=== PATIENT | male | born 1965 | race American Indian/Alaskan Native ===

== ENCOUNTER 2017-06-04 12:14 | Emergency (ER) | payer MEDICAID ==
[2017-06-04 12:31] VITALS: RESP 18; TEMP 99.1
--- NOTE | 2017-06-04 13:07 | ED PDOC ---
Arrival/HPI - General Chief Complaint: Medical Clearance Time Seen by Provider: 06/04/17 12:15 Historian: Patient - History of Present Illness Time/Duration: Other (Yesterday) Symptom Course: Worsening Quality: Aching, Pressure Severity Level: Severe Activities at Onset: Rest Associated Symptoms (Text): 06/04/17 13:05 Patient complains of severe perirectal pain and mass beginning yesterday. He had a normal bowel movement this morning. No abdominal pain nausea vomiting diarrhea constipation or GI bleed. No genitourinary symptoms. He has never experienced this previously. Past Medical History - Infectious Disease Hx of Infectious Diseases: None - Cardiac Hx Hypertension: Yes - Psychiatric Hx Psychophysiologic Disorder: No Hx Substance Use: No - Anesthesia Hx Anesthesia: No Hx Anesthesia Reactions: No Hx Malignant Hyperthermia: No Family/Social History - Physician Review Nursing Documentation Reviewed: Yes Family/Social History: Unknown Family HX Smoking Status: Never Smoked Hx Alcohol Use: No Hx Substance Use: No Allergies/Home Meds Allergies/Adverse Reactions: Allergies No Known Allergies Allergy (Verified 06/04/17 12:46) Home Medications: Home Meds Medication Instructions Recorded Confirmed Cyclobenzaprine [Flexeril] 1 tab PO HS PRN 06/04/17 06/04/17 Losartan/Hydrochlorothiazide 1 tab PO DAILY 06/04/17 06/04/17 [Losartan-Hctz 100-12.5 mg Tab] amLODIPine [Norvasc] 10 mg PO DAILY 06/04/17 06/04/17 Review of Systems - Physician Review All systems were reviewed & negative as marked: Yes - Review of Systems Constitutional: Normal Respiratory: Normal Cardiovascular: Normal Gastrointestinal: Normal Physical Exam Vital Signs Temp Pulse Resp BP Pulse Ox 06/04/17 13:27 86 18 148/78 99 06/04/17 12:36 99.1 F 97 H 18 154/84 H 98 06/04/17 12:25 99.1 F 97 H 18 154/84 H 97 Temperature: Afebrile Blood Pressure: Hypertensive Pulse: Regular Respiratory Rate: Normal Appearance: Positive for: Well-Appearing, Non-Toxic, Uncomfortable Pain Distress: Moderate Mental Status: Positive for: Alert and Oriented X 3 - Systems Exam Abdomen: Present: Normal Bowel Sounds. No: Tenderness, Distention, Peritoneal Signs, Rebound, Guarding Rectal: Present: Hemorrhoids, Other (Severe circumferential thrombosed hemorrhoids) Medical Decision Making ED Course and Treatment: 06/04/17 13:26 Discussed with the surgeon Dr. Deng and also the surgical training specialist who will evaluate the patient in the emergency department to make final disposition. 06/04/17 14:04 Seen by the surgical training specialist. Minimal reduction in the hemorrhoids achieved. Discussed with Dr. Deng who feels outpatient follow-up and elective surgery is appropriate. Patient is agreeable to this. He will follow up in the emergency department as needed. - Medication Orders Current Medication Orders: Discontinued Medications Hydromorphone HCl (Dilaudid) 2 mg IVP STAT STA Stop: 06/04/17 13:09 Last Admin: 06/04/17 13:20 Dose: 2 mg Lidocaine HCl (Xylocaine 2%) 0 ea TOP ONCE ONE Stop: 06/04/17 13:09 Last Admin: 06/04/17 13:19 Dose: Disposition/Present on Arrival - Present on Arrival Any Indicators Present on Arrival: No History of DVT/PE: No History of Uncontrolled Diabetes: No Urinary Catheter: No History of Decub. Ulcer: No History Surgical Site Infection Following: None - Disposition Have Diagnosis and Disposition been Completed?: Yes Diagnosis: Hemorrhoids with prolapsed tissue that cannot be manually replaced Disposition: HOME/ ROUTINE Disposition Time: 14:23 Patient Plan: Discharge Condition: GOOD Additional Instructions: follow up at Dr. Deng's office next week for hemorrhoidectomy -Try reducing manually when prolaps with lidocain jelly -Sitz bath for 10-15min 3 times a day -Apply anusol 3 times a day after sitz bath -apply ice pack -Take colace , stool softener Prescriptions: Hard Fat/Phenylephrine [place] [Anusol Suppository] 1 sup RC BID #14 sup Hydrocortisone 2.5% (Rectal) [Anusol-HC] 30 applic [place] BID #1 tube Docusate Sodium [Colace] 100 mg PO DAILY #20 capsule Referrals: Ammy Deng MD [Staff Provider] - Follow up with primary Sergio Pierce MD [Primary Care Provider] - Follow up with primary Forms: [employer] (Belizean)
[2017-06-04] MEDS ORDERED: Lidocaine 2% Jelly (30 ml) TOP ONE (13:08)
[2017-06-04] MEDS ORDERED: HYDROmorphone 2 mg/ml ISec IVP STA (13:08)
[2017-06-04 13:27] VITALS: BP 148/78; PULSE 86; O2SAT 99
--- NOTE | 2017-06-04 14:02 | CP.PCM.CON ---
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 Had regular BM yesterday. Non bloody. Non diarrhea. Denies constipation, bleeding, hematochezia, vomiting. Pt haven;t had hemorrhoids / rectal abscesss/ fissure in the past. Reduction attempted at bedside. Pt tolerated it well. Reports feeling better. 50% reduced. Review of Systems - Review of Systems Review of Systems: See HPI Past Patient History - Infectious Disease Hx of Infectious Diseases: None - Past Social History Smoking Status: Never Smoked - CARDIAC Hx Hypertension: Yes - PSYCHIATRIC Hx Psychophysiologic Disorder: No Hx Substance Use: No - SURGICAL HISTORY Hx Surgeries: No - ANESTHESIA Hx Anesthesia: No Hx Anesthesia Reactions: No Hx Malignant Hyperthermia: No Meds Allergies/Adverse Reactions: Allergies Allergy/AdvReac Type Severity Reaction Status Date / Time No Known Allergies Allergy Verified 06/04/17 12:46 Physical Exam - Constitutional Appears: No Acute Distress - Head Exam Head Exam: ATRAUMATIC, NORMAL INSPECTION, NORMOCEPHALIC - Eye Exam Eye Exam: EOMI, Normal appearance, PERRL Pupil Exam: NORMAL ACCOMODATION, PERRL - ENT Exam ENT Exam: Mucous Membranes Moist, Normal Exam - Neck Exam Neck exam: Positive for: Normal Inspection - Cardiovascular Exam Cardiovascular Exam: REGULAR RHYTHM - GI/Abdominal Exam GI & Abdominal Exam: Normal Bowel Sounds, Soft. absent: Distended, Firm, Guarding, Hernia, Tenderness - Rectal Exam Rectal Exam: Hemorrhoids. absent: Black Stool, Bloody Stool, Fecal Impaction Additional comments: circumferential hemorroids. L latera. R ant , R post. Non thrombosed. partially reducible. TTP. No fissure. no abscess - Exam Exam: NORMAL INSPECTION - Extremities Exam Extremities exam: Positive for: full ROM, normal inspection - Back Exam Back exam: NORMAL INSPECTION - Neurological Exam Neurological exam: Alert, CN II-XII Intact, Normal Gait, Oriented x3, Reflexes Normal - Psychiatric Exam Psychiatric exam: Normal Affect, Normal Mood - Skin Skin Exam: Dry, Intact, Normal Color, Warm Results - Vital Signs Recent Vital Signs: Last Vital Signs Temp 99.1 F 06/04/17 12:36 Pulse 86 06/04/17 13:27 Resp 18 06/04/17 13:27 BP 148/78 06/04/17 13:27 Pulse Ox 99 06/04/17 13:27 Assessment & Plan - Assessment and Plan (Free Text) Assessment: Severe external hemorrhoids. Possible prolapsed internal hemorrhoids. -DC home with : colace, anusol, lidocain jelly. -Try reducing manually when prolaps with lidocain jelly -Sitz bath -apply ice pack -follow up with Dr. Deng at her office next week to schedule hemorrhoidectomy DW Dr. Deng
== END 2017-06-04 14:26 | disposition home or self-care (01) ==
LOC: ED 12:14
DX: K64.4 Residual hemorrhoidal skin tags (principal); I10 Essential (primary) hypertension
CPT/HCPCS: 96374; 99283; J1170

== ENCOUNTER 2017-06-05 12:35 | Inpatient (IN) | payer MEDICAID ==
[2017-06-05 13:09] VITALS: BMI 34.2
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
[2017-06-05] MEDS ORDERED: Lidocaine 2% Jelly (Uro-Jet) TOP ONE (14:21)
[2017-06-05 14:32] LABS: BASO # 0.02 K/mm3 (0.0-2.0); BASO % 0.2 % (0.0-3.0); EOS # 0.1 (0.0-0.7); EOS % 0.7 % (1.5-5.0); GRAN # 5.52 (1.4-6.5); GRAN % 68.8 % (50.0-68.0); HEMATOCRIT 38.1 % (42.0-52.0); LYMPH # 1.9 (1.2-3.4); MEAN CELL VOLUME 76.7 fl (80.0-105.0); MEAN CORPUSCULAR HEMOGLOBIN 26.8 pg (25.0-35.0); MEAN CORPUSCULAR HGB CONC 34.9 g/dl (31.0-37.0); MEAN PLATELET VOLUME 10.4 fl (7.0-11.0); MONO # 0.5 (0.1-0.6); MONO % 6.3 % (1.0-6.0); RED CELL DISTRIBUTION WIDTH 13.1 % (11.5-14.5)
[2017-06-05 14:43] LABS: ALB/GLOB RATIO 1.2 (1.1-1.8); BILIRUBIN,TOTAL 0.8 mg/dL (0.2-1.3); CALCIUM 9.1 mg/dL (8.4-10.5); INR 1.03 (0.93-1.08); PARTIAL THROMBOPLASTIN TIME 27.9 Seconds (23.7-30.8); TOTAL PROTEIN 7.7 g/dL (5.8-8.3)
--- NOTE | 2017-06-05 15:16 | CP.PCM.CON ---
History of Present Illness - History of Present Illness History of Present Illness: 51M presents with prolapsed hemorrhoid. Patient has a PMH of HTN. He came in yesterday for manual reduction with most of the hemorrhoid reduced. Today, 90% reduction, patient was instructed to not strain with BM. Patient denies fever, chills, nausea, vomiting, hematochezia, melena, abdominal pain. surgery consulted to reduce the hemorrhoid. PMHx: HTN PSHx: Tonsillectomy Social: Denies tobacco, ETOH, drugs. 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 Family Hx: Father with CAD s/p CABG. Mother with HTN. PMD: Dr. Pierce in [place]. Allergies: NKDA advice for home Sitz bath Tucks see Dr. Deng Tuesday to schedule hemorrhoidectomy stool softener do not strain return to ED if extreme pain. Past Patient History - Infectious Disease Hx of Infectious Diseases: None - Past Social History Smoking Status: Never Smoked - CARDIAC Hx Hypertension: Yes - GASTROINTESTINAL Hx Hemorrhoids: Yes - PSYCHIATRIC Hx Psychophysiologic Disorder: No Hx Substance Use: No - SURGICAL HISTORY Hx Surgeries: No - ANESTHESIA Hx Anesthesia: No Hx Anesthesia Reactions: No Hx Malignant Hyperthermia: No Meds Allergies/Adverse Reactions: Allergies Allergy/AdvReac Type Severity Reaction Status Date / Time No Known Allergies Allergy Verified 06/04/17 12:46 Physical Exam - Constitutional Appears: Non-toxic, No Acute Distress - Head Exam Head Exam: NORMAL INSPECTION - Eye Exam Eye Exam: EOMI, Normal appearance - ENT Exam ENT Exam: Mucous Membranes Moist - Neck Exam Neck exam: Positive for: Full Rom - Respiratory Exam Respiratory Exam: NORMAL BREATHING PATTERN. absent: Accessory Muscle Use, Prolonged Expiratory Phase, Respiratory Distress - Cardiovascular Exam Cardiovascular Exam: REGULAR RHYTHM, +S1, +S2. absent: Bradycardia, Tachycardia - GI/Abdominal Exam GI & Abdominal Exam: Normal Bowel Sounds, Soft. absent: Diminished Bowel Sounds , Hypoactive Bowel Sounds, Tenderness - Exam External exam: Swelling (prolapse internal hemorrhoidal swelling. partially reducible) - Extremities Exam Extremities exam: Positive for: full ROM - Back Exam Back exam: NORMAL INSPECTION - Skin Skin Exam: Dry, Intact, Normal Color, Warm Results - Vital Signs Recent Vital Signs: Last Vital Signs Temp 98.8 F 06/05/17 12:54 Pulse 77 06/05/17 12:54 Resp 18 06/05/17 12:54 BP 171/87 H 06/05/17 12:54 Pulse Ox 96 06/05/17 12:54 - Labs Result Diagrams: 06/05/17 14:18 06/05/17 14:18 Labs: Laboratory Results - last 24 hr 06/05/17 06/05/17 06/05/17 14:18 14:18 14:18 WBC 8.0 RBC 4.97 Hgb 13.3 L Hct 38.1 L MCV 76.7 L MCH 26.8 MCHC 34.9 RDW 13.1 Plt Count 241 MPV 10.4 Gran % 68.8 H Lymph % (Auto) 24.0 [place] % (Auto) 6.3 H Eos % (Auto) 0.7 L Baso % (Auto) 0.2 Gran # 5.52 Lymph # 1.9 [place] # 0.5 Eos # 0.1 Baso # 0.02 PT 11.1 INR 1.03 APTT 27.9 Sodium 137 Potassium 4.0 Chloride 98 Carbon Dioxide 26 Anion Gap 17 BUN 71 H Creatinine 10.0 H* Est GFR ( Amer) 7 Est GFR (Non-Af Amer) 5 Random Glucose 85 Calcium 9.1 Total Bilirubin 0.8 AST 600 H ALT 464 H Alkaline Phosphatase 80 Total Protein 7.7 Albumin 4.1 Globulin 3.5 Albumin/Globulin Ratio 1.2 Assessment & Plan - Assessment and Plan (Free Text) Assessment: 51M presents with prolapsed internal hemorrhoids Plan: advice for home Sitz bath Tucks see Dr. Deng Tuesday to schedule hemorrhoidectomy stool softener do not strain return to ED if extreme pain. - Date & Time Date: 06/05/17 Time: 15:17
[2017-06-05] MEDS ORDERED: Sodium Chloride 0.9% 1,000 ML IV STA ×2 (15:42)
[2017-06-05 16:17] LABS: ALB/GLOB RATIO 1.2 (1.1-1.8); BILIRUBIN,TOTAL 0.9 mg/dL (0.2-1.3); POTASSIUM 3.4 mmol/L (3.6-5.0); TOTAL PROTEIN 7.6 g/dL (5.8-8.3)
[2017-06-05 17:37] LABS: URINE BILIRUBIN NEGATIVE (NEGATIVE); URINE BLOOD LARGE (NEGATIVE); URINE GLUCOSE (UA) NEGATIVE (NEGATIVE); URINE KETONE NEGATIVE (NEGATIVE); URINE LEUKOCYTE ESTERASE NEGATIVE Leu/uL (NEGATIVE); URINE PROTEIN 30 mg/dL (<30 mg/dL); URINE UROBILINOGEN 0.2 E.U./dL (<1 E.U./dL)
[2017-06-05 17:45] LABS: URINE APPEARANCE SL CLOUDY (CLEAR); URINE COLOR YELLOW (YELLOW)
[2017-06-05 17:50] LABS: URINE BACTERIA FEW (NEG); URINE WBC 0 - 2 /hpf (0-6)
--- NOTE | 2017-06-05 19:49 | CP.PCM.HP ---
<QUINTIN PIERRE - Last Filed: 06/05/17 18:42> History of Present Illness - History of Present Illness History of Present Illness: Quintin Pierre DO PGY1 - Internal Medicine H&P CC: Hemorrhoids HPI: 51 yo M with PMH of HTN presented to ER for hemorrhoid pain. He initially had a pressure sensation 2 days ago, which then became painful yesterday, at which point he came to the ER, and was found to have large external hemorrhoids , which were reduced manually and he was sent home. Last night, he was unable to sleep due to pain, and he returned to the ER. In the ER, the hemorrhoids were again reduced, with some reduction in his pain. He denies any chronic or recent constipation, denies inserting foreign objects into his rectum, denies N/ V/D/C, F/C, abdominal pain. He has not had hemorrhoids in the past. 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 In the ER, he was also noted to have severely elevated creatinine and creatine kinase. He admits to recently being diagnosed with rhabdomyolysis by his PCP 5 days ago. This occurred after lifting weights, doing bicep curls x70 one week ago, for the first time in over a year. Two days later, he had severe swelling in both arms, especially in his biceps, associated with pain and limited ROM, at which point he went to his PCP, who gave him cyclobenzaprine and told him to drink a lot of water. He reports regular exercise and physical activity, but no weightlifting for over a year. He denies any prior kidney disease, substance abuse, protein or creatine supplementation, or anabolic steroid use. PMH: HTN PSH: Tonsillectomy in childhood Meds: Amlodipine 10mg QD, Losartan 100mg QD, HCTZ 12.5mg QD FHx: HTN in mother, Father had open heart surgery Soc: Denies tob, EtOH, and Illicits All: NKDA ROS: Constitutional: pt denies fever, chills, generalized weakness ENT: pt denies dysphagia, otalgia, hearing deficit, rhinorrhea Eyes: pt denies sudden loss of vision, diplopia, blurred vision MSK: pt denies muscle stiffness, joint pain, extremity cramping Cardio: pt denies sob, heart murmur, CP Pulm: pt denies cough, hemoptysis, wheeze GI: +Hemorrhoids, rectal pain pt denies loss of appetite, abdominal pain, constipation, melena, n/v/d : pt denies burning on urination, urinary frequency, hematuria, urinary urgency Neuro: pt denies paresis, paresthesia, dizziness, lewis, numbness, tingling Derm: pt denies skin changes, lesions, nail changes Endo: pt denies intolerance to heat/cold, diaphoresis, night sweats, polydipsia Psych: pt denies anxiety, depression, mood changes Present on Admission - Present on Admission Any Indicators Present on Admission: No Past Patient History - Infectious Disease Hx of Infectious Diseases: None - Past Social History Smoking Status: Never Smoked - CARDIAC Hx Hypertension: Yes - MUSCULOSKELETAL/RHEUMATOLOGICAL Hx Falls: No - GASTROINTESTINAL Hx Hemorrhoids: Yes - PSYCHIATRIC Hx Psychophysiologic Disorder: No Hx Substance Use: No - SURGICAL HISTORY Hx Surgeries: No - ANESTHESIA Hx Anesthesia: No Hx Anesthesia Reactions: No Hx Malignant Hyperthermia: No Meds Allergies/Adverse Reactions: Allergies Allergy/AdvReac Type Severity Reaction Status Date / Time No Known Allergies Allergy Verified 06/04/17 12:46 Physical Exam - Constitutional Appears: Non-toxic, No Acute Distress - Head Exam Head Exam: ATRAUMATIC, NORMOCEPHALIC - Eye Exam Eye Exam: EOMI, PERRL - ENT Exam ENT Exam: Mucous Membranes Moist - Neck Exam Neck exam: Negative for: Lymphadenopathy, Thyromegaly - Respiratory Exam Respiratory Exam: Clear to Auscultation Bilateral. absent: Rales, Rhonchi, Wheezes - Cardiovascular Exam Cardiovascular Exam: RRR, +S1, +S2 - GI/Abdominal Exam GI & Abdominal Exam: Normal Bowel Sounds, Soft. absent: Tenderness - Rectal Exam Rectal Exam: Hemorrhoids - Extremities Exam Extremities exam: Negative for: calf tenderness, pedal edema, tenderness Additional comments: R bicep mildly firm/tense - Back Exam Back exam: absent: CVA tenderness (L), CVA tenderness (R) - Neurological Exam Neurological exam: Alert, Oriented x3 - Psychiatric Exam Psychiatric exam: Normal Affect, Normal Mood - Skin Skin Exam: Dry, Intact Results - Vital Signs Recent Vital Signs: Last Vital Signs Temp 98.8 F 06/05/17 12:54 Pulse 75 06/05/17 18:25 Resp 18 06/05/17 18:25 BP 167/112 H 06/05/17 18:32 Pulse Ox 96 06/05/17 16:12 - Labs Result Diagrams: 06/05/17 14:18 06/05/17 15:35 Labs: Laboratory Results - last 24 hr 06/05/17 06/05/17 06/05/17 17:32 17:32 17:32 Urine Color Yellow Urine Appearance Sl cloudy Urine pH 6.0 Ur Specific [place] 1.010 Urine Protein 30 H Urine Glucose (UA) Negative Urine Ketones Negative Urine Blood Large H Urine Nitrate Negative Urine Bilirubin Negative Urine Urobilinogen 0.2 Ur Leukocyte Esterase Negative Urine RBC 2 - 5 Urine WBC 0 - 2 Urine Bacteria Few Ur Random Creatinine 93 Ur Random Sodium 28 Ur Random Potassium 8.3 Urine Opiates Screen Negative Urine Methadone Screen Negative Ur Barbiturates Screen Negative Ur Phencyclidine Scrn Negative Ur Amphetamines Screen Negative U Benzodiazepines Scrn Negative U Oth Cocaine Metabols Negative U Cannabinoids Screen Negative Assessment & Plan - Assessment and Plan (Free Text) Assessment: 51 yo M with PMH of HTN who initially presented with hemorrhoidal pain, also noted to have rhabdomyolysis 2/2 overexertion Plan: 1. Prolapsed hemorrhoids - Surgery was consulted and manually reduced the prolapsed hemorrhoids at bedside in the ER, with some resolution of symptoms - Patient was instructed not to strain with BMs - Started Miralax and Colace as stool softeners - Anusol started for pain relief - Surgery (Ish) consulted, all recs appreciated 2. Rhabdomyolysis - BUN 71, creatinine 10, AST 600, [place] [address] on [place], but maintaining good urine output - Given 2L NS bolus in the ER, started on NS@200cc/hr - Strict I&O - Renal diet - Urine myoglobin and eosinophils pending - Will recheck kidney function with AM labs 3. H/o HTN - Restarted home Amlodipine 10mg PO QD, but holding Losartan and HCTZ due to rhabdo - Clonidine 0.1 mg PO Q6 PRN GI/DVT ppx Patient seen, discussed, and reviewed with attending <Kim Guardado - Last Filed: 06/06/17 12:08> Results - Vital Signs Recent Vital Signs: Last Vital Signs Temp 98.6 F 06/06/17 07:52 Pulse 81 06/06/17 07:52 Resp 20 06/06/17 07:52 BP 139/62 06/06/17 10:08 Pulse Ox 98 06/06/17 07:52 - Labs Result Diagrams: 06/06/17 06:45 06/06/17 07:01 Labs: Laboratory Results - last 24 hr 06/05/17 06/05/17 06/05/17 17:32 17:32 17:32 WBC RBC Hgb Hct MCV MCH MCHC RDW Plt Count MPV Sodium Potassium Chloride Carbon Dioxide Anion Gap BUN Creatinine Est GFR ( Amer) Est GFR (Non-Af Amer) Random Glucose Calcium Total Bilirubin AST ALT Alkaline Phosphatase Total Creatine Kinase CK-MB (CK-2) CK-MB (CK-2) % Total Protein Albumin Globulin Albumin/Globulin Ratio Urine Color Yellow Urine Appearance Sl cloudy Urine pH 6.0 Ur Specific [place] 1.010 Urine Protein 30 H Urine Glucose (UA) Negative Urine Ketones Negative Urine Blood Large H Urine Nitrate Negative Urine Bilirubin Negative Urine Urobilinogen 0.2 Ur Leukocyte Esterase Negative Urine RBC 2 - 5 Urine WBC 0 - 2 Urine Bacteria Few Urine Eosinophils Ur Random Creatinine 93 Ur Random Sodium 28 Ur Random Potassium 8.3 Urine Opiates Screen Negative Urine Methadone Screen Negative Ur Barbiturates Screen Negative Ur Phencyclidine Scrn Negative Ur Amphetamines Screen Negative U Benzodiazepines Scrn Negative U Oth Cocaine Metabols Negative U Cannabinoids Screen Negative 06/06/17 06/06/17 06/06/17 06:45 07:01 08:17 WBC 6.2 D RBC 4.67 Hgb 12.2 L Hct 35.7 L MCV 76.4 L MCH 26.1 MCHC 34.2 RDW 13.1 Plt Count 242 MPV 10.3 Sodium 137 Potassium 3.9 Chloride 104 Carbon Dioxide 23 Anion Gap 14 BUN 67 H Creatinine 9.6 H* Est GFR ( Amer) 7 Est GFR (Non-Af Amer) 6 Random Glucose 80 Calcium 8.3 L Total Bilirubin 0.8 AST 251 H D ALT 305 H Alkaline Phosphatase 67 Total Creatine Kinase 09749 H CK-MB (CK-2) 7.3 H CK-MB (CK-2) % 0.1 L Total Protein 6.4 Albumin 3.3 Globulin 3.1 Albumin/Globulin Ratio 1.1 Urine Color Urine Appearance Urine pH Ur Specific [place] Urine Protein Urine Glucose (UA) Urine Ketones Urine Blood Urine Nitrate Urine Bilirubin Urine Urobilinogen Ur Leukocyte Esterase Urine RBC Urine WBC Urine Bacteria Urine Eosinophils Negative Ur Random Creatinine Ur Random Sodium Ur Random Potassium Urine Opiates Screen Urine Methadone Screen Ur Barbiturates Screen Ur Phencyclidine Scrn Ur Amphetamines Screen U Benzodiazepines Scrn U Oth Cocaine Metabols U Cannabinoids Screen Attending/Attestation - Attestation I have personally seen and examined this patient.: Yes I have fully participated in the care of the patient.: Yes I have reviewed all pertinent clinical information: Yes Notes (Text): 06/06/17 12:05 attending note; Patient seen and examined with resident in ER. Patient is a 51-year-old male with a past medical history of hypertension came to the ER for acutely inflamed hemorrhoids. Found to have elevated creatinine/rhabdomyolysis. Started on IV fluids. Monitor CPK, creatinine and LFTs. No previous history of Kidney disease in the past. hold ARB/Diuretics. Nephrology evaluation requested. Patient follows up with PMD Dr. Pierce. 06/06/17 12:07
[2017-06-05] MEDS: Sodium Chloride 0.9% 1,000 ML IV SCH (20:48)
[2017-06-06] MEDS: Sodium Chloride 0.9% 1,000 ML IV SCH ×3 (00:15→17:34)
--- NOTE | 2017-06-06 06:39 | CP.PCM.PN ---
Subjective - Date & Time of Evaluation Date of Evaluation: 06/06/17 Time of Evaluation: 06:36 - Subjective Subjective: SURGERY NOTE FOR DR. OJEDA 51M seen and examined at bedside. TYREE. Patient states the pain in the anus is much improved. Denies any bleeding per rectum. Objective - Vital Signs/Intake and Output Vital Signs (last 24 hours): Temp Pulse Resp BP Pulse Ox 98.9 F 94 H 18 165/99 H 98 06/06/17 00:11 06/06/17 00:17 06/06/17 00:11 06/06/17 00:17 06/06/17 00:11 Intake and Output: 06/05/17 06/06/17 18:59 06:59 Intake Total 240 Output Total 750 Balance -510 - Medications Medications: Current Medications Amlodipine Besylate (Norvasc) 10 mg PO DAILY [facility] Last Admin: 06/05/17 18:32 Dose: 10 mg Clonidine HCl (Catapres) 0.1 mg PO Q6 PRN PRN Reason: Systolic Blood Pressure Last Admin: 06/06/17 00:17 Dose: 0.1 mg Docusate Sodium (Colace) 100 mg PO TID [facility] Last Admin: 06/05/17 18:30 Dose: 100 mg Famotidine (Pepcid) 20 mg PO 1000,2200 [facility] Last Admin: 06/05/17 21:47 Dose: 20 mg Heparin Sodium (Porcine) (Heparin) 5,000 units SC Q12 TAMMY PRN Reason: Protocol Last Admin: 06/05/17 21:48 Dose: 5,000 units Hydrocortisone (Anusol-Hc) 1 gm [place] BID [facility] Hydrocortisone (Anusol-Hc) 25 mg RC BID [facility] Sodium Chloride (Sodium Chloride 0.9%) 1,000 mls @ 200 mls/hr IV .Q5H [facility] Last Admin: 06/06/17 00:15 Dose: 200 mls/hr Polyethylene Glycol (Miralax) 17 gm PO DAILY [facility] - Labs Labs: PT 11.1 Seconds (9.9-11.8) 06/05/17 14:18 INR 1.03 (0.93-1.08) 06/05/17 14:18 APTT 27.9 Seconds (23.7-30.8) 06/05/17 14:18 - Constitutional Appears: Non-toxic, No Acute Distress - Respiratory Exam Respiratory Exam: Clear to Ausculation Bilateral, NORMAL BREATHING PATTERN - Cardiovascular Exam Cardiovascular Exam: REGULAR RHYTHM, +S1, +S2 - GI/Abdominal Exam GI & Abdominal Exam: Soft. absent: Distended, Firm, Guarding, Rigid, Tenderness , Rebound - Rectal Exam Rectal Exam: Hemorrhoids (partially reduced) - Extremities Exam Extremities Exam: absent: Pedal Edema, Tenderness - Neurological Exam Neurological Exam: Alert, Awake Assessment and Plan - Assessment and Plan (Free Text) Assessment: 51M with hemorrhoids, partially reduced. Plan: - will continue to follow while in-patient - continue medical management for rhabdomyolysis Further recs discuss with Dr. Ish Limon, PGY2
[2017-06-06 07:14] LABS: HEMATOCRIT 35.7 % (42.0-52.0); MEAN CELL VOLUME 76.4 fl (80.0-105.0); MEAN CORPUSCULAR HEMOGLOBIN 26.1 pg (25.0-35.0); MEAN CORPUSCULAR HGB CONC 34.2 g/dl (31.0-37.0); MEAN PLATELET VOLUME 10.3 fl (7.0-11.0); RED CELL DISTRIBUTION WIDTH 13.1 % (11.5-14.5); WHITE BLOOD COUNT 6.2 10^3/ul (4.5-11.0)
[2017-06-06 07:26] LABS: ALB/GLOB RATIO 1.1 (1.1-1.8); BILIRUBIN,TOTAL 0.8 mg/dL (0.2-1.3); CALCIUM 8.3 mg/dL (8.4-10.5); POTASSIUM 3.9 mmol/L (3.6-5.0); TOTAL PROTEIN 6.4 g/dL (5.8-8.3)
--- NOTE | 2017-06-06 07:28 | CARD ---
APPROVED REPORT EKG Measurement Heart [id number] <Conclusion> Normal sinus rhythm Normal ECG
[2017-06-06] MEDS: POLYETHYLENE GLYCOL 3350 17 GM/Dose PACKET PO SCH (10:09)
[2017-06-06] MEDS: Hydrocortisone 2.5% Rectal Cream(30 gm) PR SCH ×2 (10:17→17:25)
--- NOTE | 2017-06-06 11:55 | CP.PCM.PN ---
<IGNACIOKATLYN - Last Filed: 06/06/17 11:50> Subjective - Date & Time of Evaluation Date of Evaluation: 06/06/17 Time of Evaluation: 07:30 - Subjective Subjective: Katlyn Smith DO PGY1 - Internal Medicine Progress Note Patient seen and examined at bedside. No acute events reported overnight. Patient reports that rectal pain is significantly improved since manual reduction yesterday. He also denies back pain, dysuria, hematuria. He continues to have good urine output. Objective - Vital Signs/Intake and Output Vital Signs (last 24 hours): Temp Pulse Resp BP Pulse Ox 98.6 F 81 20 139/62 98 06/06/17 07:52 06/06/17 07:52 06/06/17 07:52 06/06/17 10:08 06/06/17 07:52 Intake and Output: 06/06/17 06/06/17 06:59 18:59 Intake Total 240 Output Total 750 Balance -510 - Medications Medications: Current Medications Amlodipine Besylate (Norvasc) 10 mg PO DAILY [facility] Last Admin: 06/06/17 10:08 Dose: 10 mg Clonidine HCl (Catapres) 0.1 mg PO Q6 PRN PRN Reason: Systolic Blood Pressure Last Admin: 06/06/17 00:17 Dose: 0.1 mg Docusate Sodium (Colace) 100 mg PO TID [facility] Last Admin: 06/06/17 10:09 Dose: 100 mg Famotidine (Pepcid) 20 mg PO 1000,2200 [facility] Last Admin: 06/06/17 10:09 Dose: 20 mg Heparin Sodium (Porcine) (Heparin) 5,000 units SC Q12 TAMMY PRN Reason: Protocol Last Admin: 06/06/17 10:07 Dose: 5,000 units Hydrocortisone (Anusol-Hc) 1 gm [place] BID [facility] Last Admin: 06/06/17 10:17 Dose: 1 gm Hydrocortisone (Anusol-Hc) 25 mg RC BID [facility] Sodium Chloride (Sodium Chloride 0.9%) 1,000 mls @ 200 mls/hr IV .Q5H [facility] Last Admin: 06/06/17 07:40 Dose: 200 mls/hr Polyethylene Glycol (Miralax) 17 gm PO DAILY [facility] Last Admin: 06/06/17 10:09 Dose: 17 gm - Labs Labs: 06/06/17 06:45 06/06/17 07:01 PT 11.1 Seconds (9.9-11.8) 06/05/17 14:18 INR 1.03 (0.93-1.08) 06/05/17 14:18 APTT 27.9 Seconds (23.7-30.8) 06/05/17 14:18 - Constitutional Appears: Non-toxic, No Acute Distress - Head Exam Head Exam: ATRAUMATIC, NORMOCEPHALIC - Eye Exam Eye Exam: EOMI, PERRL - ENT Exam ENT Exam: Mucous Membranes Moist - Neck Exam Neck Exam: absent: Lymphadenopathy, Thyromegaly - Respiratory Exam Respiratory Exam: Clear to Ausculation Bilateral. absent: Rales, Rhonchi, Wheezes - Cardiovascular Exam Cardiovascular Exam: RRR, +S1, +S2 - GI/Abdominal Exam GI & Abdominal Exam: Soft, Normal Bowel Sounds. absent: Tenderness - Rectal Exam Rectal Exam: Hemorrhoids - Extremities Exam Extremities Exam: Normal Inspection. absent: Calf Tenderness, Pedal Edema - Back Exam Back Exam: absent: CVA tenderness (L), CVA tenderness (R) - Neurological Exam Neurological Exam: Alert, Awake, Oriented x3 - Psychiatric Exam Psychiatric exam: Normal Affect, Normal Mood - Skin Skin Exam: Dry, Intact Assessment and Plan - Assessment and Plan (Free Text) Assessment: 51 yo M with PMH of HTN who initially presented with hemorrhoidal pain, also noted to have rhabdomyolysis 2/2 overexertion Plan: 1. Prolapsed hemorrhoids - Surgery was consulted and manually reduced the prolapsed hemorrhoids at bedside in the ER, with significant resolution of symptoms - Patient was instructed not to strain with BMs - On Miralax and Colace as stool softeners - Anusol started for pain relief - Surgery (Ish) consulted, all recs appreciated, recommending elective surgery for hemorrhoidectomy 2. Rhabdomyolysis - BUN 71, creatinine 10, AST 600, [place] 464, [place] [address] on admission, but maintaining good urine output - Creat[place] 9[place] [address] - Given 2L NS bolus in the ER, on NS@200cc/hr - Strict I&O - Renal diet - Nephro (Mughni) consulted, all recs appreciated - Urine eosinophils negative, myoglobin pending - Urine tox screen negative - Transaminitis improving - Continue to monitor 3. H/o HTN - Restarted home Amlodipine 10mg PO QD, but holding Losartan and HCTZ due to rhabdo - Clonidine 0.1 mg PO Q6 PRN GI/DVT ppx Patient seen, discussed, and reviewed with attending <Ricci Saba - Last Filed: 06/06/17 12:34> Objective - Vital Signs/Intake and Output Vital Signs (last 24 hours): Temp Pulse Resp BP Pulse Ox 98.6 F 81 20 139/62 98 06/06/17 07:52 06/06/17 07:52 06/06/17 07:52 06/06/17 10:08 06/06/17 07:52 Intake and Output: 06/06/17 06/06/17 06:59 18:59 Intake Total 240 Output Total 750 Balance -510 - Medications Medications: Current Medications Amlodipine Besylate (Norvasc) 10 mg PO DAILY [facility] Last Admin: 06/06/17 10:08 Dose: 10 mg Clonidine HCl (Catapres) 0.1 mg PO Q6 PRN PRN Reason: Systolic Blood Pressure Last Admin: 06/06/17 00:17 Dose: 0.1 mg Docusate Sodium (Colace) 100 mg PO TID [facility] Last Admin: 06/06/17 10:09 Dose: 100 mg Famotidine (Pepcid) 20 mg PO 1000,2200 [facility] Last Admin: 06/06/17 10:09 Dose: 20 mg Heparin Sodium (Porcine) (Heparin) 5,000 units SC Q12 TAMMY PRN Reason: Protocol Last Admin: 06/06/17 10:07 Dose: 5,000 units Hydrocortisone (Anusol-Hc) 1 gm [place] BID [facility] Last Admin: 06/06/17 10:17 Dose: 1 gm Hydrocortisone (Anusol-Hc) 25 mg RC BID [facility] Sodium Chloride (Sodium Chloride 0.9%) 1,000 mls @ 200 mls/hr IV .Q5H [facility] Last Admin: 06/06/17 07:40 Dose: 200 mls/hr Polyethylene Glycol (Miralax) 17 gm PO DAILY [facility] Last Admin: 06/06/17 10:09 Dose: 17 gm - Labs Labs: 06/06/17 06:45 06/06/17 07:01 PT 11.1 Seconds (9.9-11.8) 06/05/17 14:18 INR 1.03 (0.93-1.08) 06/05/17 14:18 APTT 27.9 Seconds (23.7-30.8) 06/05/17 14:18 Attending/Attestation - Attestation I have personally seen and examined this patient.: Yes I have fully participated in the care of the patient.: Yes I have reviewed all pertinent clinical information, including history, physical exam and plan: Yes Notes (Text): 06/06/17 12:28 51 year old male with past medical history of hypertension who presented with hemorrhoidal pain. Surgery is following for prolapsed hemorrhoids which was manually reduced yesterday. He is on colace, miralax and anusol cream. He was found to have acute renal failure with rhabdomyolysis with elevated LFTs. Continue with iv fluids. Continue to monitor renal function and CKs levels closely. Continue to trend LFTs. Hepatitis panel is pending. Avoid nephro/hepatoxic agents. Nephrology evaluation is requested and renal ultrasound was ordered. Patient is on norvasc for hypertension and his losartan/HCTZ is on hold due to RAKEL as above. Ricci Saba MD Hospitalist.
--- NOTE | 2017-06-06 18:20 | CON ---
DATE: NEPHROLOGY CONSULTATION HISTORY OF PRESENT ILLNESS: A 51-year-old male with past medical history of hypertension, initially presented yesterday to the ER for hemorrhoidal pain, found to have marked increase in serum creatinine and admitted for acute renal failure secondary to rhabdomyolysis. The patient reports having lifted heavy weights doing biceps curls extensively one week ago for the first time in over a year. The next day, patient noted having dark brownish urine and also started having pain and swelling in both arms, especially his biceps, at this point, the patient went to his PCP two days after doing the exercise. PCP gave him cyclobenzaprine for muscle relaxant and told him to drink a lot of water, was later to have labs done this week. The patient also reports taking Advil day before presentation to PCP, two pills in the morning and two pills in the evening, reports having some nausea around this period and also had a couple of episodes of vomiting. The patient otherwise denies any change in urinary frequency, denies any shortness of breath or leg swelling. PAST MEDICAL HISTORY: Hypertension, on amlodipine 10 mg daily, losartan 100 mg daily and hydrochlorothiazide 12.5 mg daily, all of which he continued to take over this past week. FAMILY MEDICAL HISTORY: Mother with hypertension. Father, status post open heart surgery. SOCIAL HISTORY: Denies smoking or illicit drug use. REVIEW OF SYSTEMS: CONSTITUTIONAL: Denies fevers or chills. HEENT: Denies any change in vision. RESPIRATORY: Denies any difficulty breathing. Denies any shortness of breath. No cough. HEART: Denies any chest pain or palpitations. MUSCULOSKELETAL: As per HPI with pain and swelling in biceps muscles bilaterally. GASTROINTESTINAL: External hemorrhoids manually reduced in ED, otherwise denies any diarrhea or constipation, denies any blood per rectum. Brown colored stool. GENITOURINARY: Per HPI. NEUROLOGIC: Denies any dizziness. Denies any numbness in feet. SKIN: Denies any itching or rashes. PSYCHIATRIC: Denies any depression or anxiety PHYSICAL EXAMINATION: VITAL SIGNS: This morning, blood pressure 139/62, heart rate 81, respiration 20, temperature is 98.6, O2 saturation 98% on room air. GENERAL: No distress. Communicating coherently in full sentences. HEENT: Moist mucous membranes. Nonicteric. RESPIRATORY: Lungs clear to auscultation bilaterally. No rales. No rhonchi. No wheezes. CARDIOVASCULAR: S1 and S2 normal. No murmurs, no gallops, no rubs. No carotid bruit. 2+ bilateral dorsalis pedis pulses. GASTROINTESTINAL: Abdomen is soft, nontender, nondistended. GENITOURINARY: No bladder distention. MUSCULOSKELETAL: No tenderness on palpation of bilateral upper extremities. EXTREMITIES: No leg edema. SKIN: Warm. No cyanosis. PSYCHIATRIC: Normal mood, normal affect. NEUROLOGIC: No asterixis. No numbness of feet. LABORATORY DATA: This morning, CBC: WBC 6.2, hemoglobin 12.2, hematocrit 35.7, platelets 242. Chemistry panel: Sodium 137, potassium 3.9, chloride 104, bicarbonate 23, BUN 67, creatinine 9.6, decreased from 71 and 10.0 yesterday afternoon, calcium 8.3, glucose 80. AST 251, ALT 305, decreased from 600 and 464 yesterday. Total CK level 10,761 decreased from 23,599 yesterday. Albumin is 3.3. UA: Specific gravity 1.010, urine protein 30 mg/dL, large blood, 2-5 RBC's per high power field. Urine toxicology negative. Chest x-ray from yesterday on presentation, lungs clear bilaterally. ASSESSMENT AND PLAN: 1. Acute renal failure consistent with acute tubular necrosis secondary to rhabdomyolysis, nonoliguric, renal failure, relatively stable electrolytes and volume status. No indication for dialysis at this time. Serum creatinine minimally improved since yesterday, but not worsening and likely is plateaued and indicates that renal recovery is close (mild improvement might be secondary to dilution). I agree with continuing IV fluids for now, although with renal function already markedly impaired from acute tubular necrosis, no definitive benefit. If any signs of volume excess, should decrease IV fluids. Obtain records from PMD regarding baseline renal function. Checking renal ultrasound to look for any evidence of chronicity of kidney disease. Checking PTH to look for evidence of chronic kidney disease. 2. Rhabdomyolysis. Decreasing CK level, was likely much higher at peak as CK levels of 20,000 do not explain such advanced acute kidney injury. Fluids as above. Continue to hold ARB and Dyazide diuretics. Avoid any NSAIDs. 3. Hypertension, currently on amlodipine 10 mg daily and started on clonidine 0.6 mg q. 6 hours p.r.n. in lieu of home medications of ARB and Dyazide. Agree with management, blood pressure controlled this morning. 4. Transaminitis, likely secondary to muscle injury, continue to trend. 5. Hypocalcemia, corrected for calcium, is at low level of normal. No need to replenish as calcium is sequestered in affected muscle tissue and will be released into circulation as muscle recovers. Check phosphate level. 6. External hemorrhoids. Agree with giving Colace and MiraLax. Should strictly avoid any phosphate enema if patient is constipated as the acute phosphate load can worsen renal injury. Tree Degroot MD
[2017-06-07] MEDS: Sodium Chloride 0.9% 1,000 ML IV SCH ×2 (05:35→05:37)
--- NOTE | 2017-06-07 06:38 | CP.PCM.PN ---
Subjective - Date & Time of Evaluation Date of Evaluation: 06/07/17 Time of Evaluation: 06:37 - Subjective Subjective: General Surgery Progress Note for Dr. Deng PT S&E at [facility]. Blood pressure elevated. Morning BP medication not adminstered. Objective - Vital Signs/Intake and Output Vital Signs (last 24 hours): Temp Pulse Resp BP Pulse Ox 98.3 F 88 20 164/100 H 97 06/06/17 23:45 06/06/17 23:45 06/06/17 23:45 06/06/17 23:45 06/06/17 23:45 Intake and Output: 06/06/17 06/07/17 18:59 06:59 Intake Total 720 540 Output Total 875 1400 Balance -155 -860 - Medications Medications: Current Medications Amlodipine Besylate (Norvasc) 10 mg PO DAILY [facility] Last Admin: 06/06/17 10:08 Dose: 10 mg Clonidine HCl (Catapres) 0.1 mg PO Q6 PRN PRN Reason: Systolic Blood Pressure Last Admin: 06/06/17 00:17 Dose: 0.1 mg Docusate Sodium (Colace) 100 mg PO TID [facility] Last Admin: 06/06/17 17:25 Dose: 100 mg Famotidine (Pepcid) 20 mg PO 1000,2200 [facility] Last Admin: 06/06/17 21:21 Dose: 20 mg Heparin Sodium (Porcine) (Heparin) 5,000 units SC Q12 [facility] PRN Reason: Protocol Last Admin: 06/06/17 21:21 Dose: 5,000 units Hydrocortisone (Anusol-Hc) 1 gm GA BID [facility] Last Admin: 06/06/17 17:25 Dose: 1 gm Hydrocortisone (Anusol-Hc) 25 mg RC BID [facility] Last Admin: 06/06/17 17:30 Dose: Not Given Sodium Chloride (Sodium Chloride 0.9%) 1,000 mls @ 200 mls/hr IV .Q5H [facility] Last Admin: 06/07/17 05:37 Dose: 200 mls/hr Polyethylene Glycol (Miralax) 17 gm PO DAILY [facility] Last Admin: 06/06/17 10:09 Dose: 17 gm - Labs Labs: 06/06/17 06:45 06/06/17 07:01 PT 11.1 Seconds (9.9-11.8) 06/05/17 14:18 INR 1.03 (0.93-1.08) 06/05/17 14:18 APTT 27.9 Seconds (23.7-30.8) 06/05/17 14:18 - Constitutional Appears: Non-toxic, No Acute Distress - Head Exam Head Exam: NORMAL INSPECTION - Eye Exam Eye Exam: EOMI, Normal appearance - ENT Exam ENT Exam: Mucous Membranes Moist - Neck Exam Neck Exam: Full ROM - Respiratory Exam Respiratory Exam: Clear to Ausculation Bilateral, NORMAL BREATHING PATTERN. absent: Accessory Muscle Use, Respiratory Distress - Cardiovascular Exam Cardiovascular Exam: REGULAR RHYTHM. absent: Bradycardia, Tachycardia - GI/Abdominal Exam GI & Abdominal Exam: Soft, Normal Bowel Sounds. absent: Tenderness, Diminished Bowel Sounds - Extremities Exam Additional comments: arm swelling bilaterally, no pitting edema - Neurological Exam Neurological Exam: Alert, Awake, Oriented x3 - Psychiatric Exam Psychiatric exam: Normal Affect, Normal Mood - Skin Skin Exam: Dry, Intact, Normal Color, Warm
[2017-06-07 07:21] LABS: BASO # 0.07 K/mm3 (0.0-2.0); BASO % 1.2 % (0.0-3.0); EOS # 0.1 (0.0-0.7); EOS % 2.2 % (1.5-5.0); GRAN # 3.63 (1.4-6.5); GRAN % 61.7 % (50.0-68.0); LYMPH # 1.6 (1.2-3.4); LYMPH % 27.8 % (22.0-35.0); MEAN CELL VOLUME 76.5 fl (80.0-105.0); MEAN CORPUSCULAR HEMOGLOBIN 26.5 pg (25.0-35.0); MEAN CORPUSCULAR HGB CONC 34.6 g/dl (31.0-37.0); MEAN PLATELET VOLUME 10.3 fl (7.0-11.0); MONO # 0.4 (0.1-0.6); MONO % 7.1 % (1.0-6.0); RED CELL DISTRIBUTION WIDTH 12.9 % (11.5-14.5); WHITE BLOOD COUNT 5.9 10^3/ul (4.5-11.0)
[2017-06-07 07:41] LABS: ALB/GLOB RATIO 1.1 (1.1-1.8); BILIRUBIN,TOTAL 0.7 mg/dL (0.2-1.3); CALCIUM 8.6 mg/dL (8.4-10.5); POTASSIUM 3.7 mmol/L (3.6-5.0); TOTAL PROTEIN 6.8 g/dL (5.8-8.3)
[2017-06-07] MEDS ORDERED: Sodium Chloride 0.9% 1,000 ML IV SCH (09:44)
[2017-06-07] MEDS: POLYETHYLENE GLYCOL 3350 17 GM/Dose PACKET PO SCH (10:14)
[2017-06-07] MEDS: Hydrocortisone 2.5% Rectal Cream(30 gm) PR SCH ×2 (11:10→19:37)
--- NOTE | 2017-06-07 12:32 | CP.PCM.PN ---
<MINNIE SMITHTAMEKA - Last Filed: 06/07/17 12:29> Subjective - Date & Time of Evaluation Date of Evaluation: 06/07/17 Time of Evaluation: 07:30 - Subjective Subjective: Katlyn Smith DO PGY1 - Internal Medicine Progress Note Patient seen and examined at bedside. Nurse reports no acute events overnight. Patient says rectal pain is improving, though still has some mild discomfort, especially with bowel movements. He denies dysuria or hematuria, F/C, myalgias, CP, SOB, N/V/D/C, abdominal pain, back pain. Objective - Vital Signs/Intake and Output Vital Signs (last 24 hours): Temp Pulse Resp BP Pulse Ox 98.2 F 79 20 164/105 H 98 06/07/17 08:00 06/07/17 08:19 06/07/17 08:00 06/07/17 10:14 06/07/17 08:00 Intake and Output: 06/07/17 06/07/17 06:59 18:59 Intake Total 540 Output Total 1400 Balance -860 - Medications Medications: Current Medications Amlodipine Besylate (Norvasc) 10 mg PO DAILY [facility] Last Admin: 06/07/17 10:14 Dose: 10 mg Clonidine HCl (Catapres) 0.1 mg PO Q6 PRN PRN Reason: Systolic Blood Pressure Last Admin: 06/07/17 08:19 Dose: 0.1 mg Docusate Sodium (Colace) 100 mg PO TID [facility] Last Admin: 06/07/17 10:12 Dose: 100 mg Famotidine (Pepcid) 20 mg PO 1000,2200 [facility] Last Admin: 06/07/17 10:12 Dose: 20 mg Heparin Sodium (Porcine) (Heparin) 5,000 units SC Q12 [facility] PRN Reason: Protocol Last Admin: 06/07/17 10:11 Dose: 5,000 units Hydrocortisone (Anusol-Hc) 1 gm MO BID [facility] Last Admin: 06/07/17 11:10 Dose: 1 gm Hydrocortisone (Anusol-Hc) 25 mg RC BID [facility] Last Admin: 06/07/17 10:14 Dose: 25 mg Sodium Chloride (Sodium Chloride 0.9%) 1,000 mls @ 75 mls/hr IV .[id number] [facility] Polyethylene Glycol (Miralax) 17 gm PO DAILY [facility] Last Admin: 06/07/17 10:14 Dose: 17 gm - Labs Labs: 06/07/17 06:13 06/07/17 06:13 PT 11.1 Seconds (9.9-11.8) 06/05/17 14:18 INR 1.03 (0.93-1.08) 06/05/17 14:18 APTT 27.9 Seconds (23.7-30.8) 06/05/17 14:18 - Constitutional Appears: Non-toxic, No Acute Distress - Head Exam Head Exam: ATRAUMATIC, NORMOCEPHALIC - Eye Exam Eye Exam: EOMI, PERRL - ENT Exam ENT Exam: Mucous Membranes Moist - Neck Exam Neck Exam: absent: Lymphadenopathy, Thyromegaly - Respiratory Exam Respiratory Exam: Clear to Ausculation Bilateral. absent: Rales, Rhonchi, Wheezes - Cardiovascular Exam Cardiovascular Exam: RRR, +S1, +S2 - GI/Abdominal Exam GI & Abdominal Exam: Soft, Normal Bowel Sounds. absent: Tenderness - Rectal Exam Rectal Exam: Hemorrhoids - Extremities Exam Extremities Exam: Full ROM, Normal Inspection. absent: Calf Tenderness, Joint Swelling, Pedal Edema - Back Exam Back Exam: absent: CVA tenderness (L), CVA tenderness (R) - Neurological Exam Neurological Exam: Alert, Awake, Oriented x3 - Psychiatric Exam Psychiatric exam: Normal Affect, Normal Mood - Skin Skin Exam: Dry, Intact, Normal Color Assessment and Plan - Assessment and Plan (Free Text) Assessment: 51 yo M with PMH of HTN who initially presented with hemorrhoidal pain, also noted to have rhabdomyolysis 2/2 overexertion Plan: 1. Prolapsed hemorrhoids - Surgery was consulted and manually reduced the prolapsed hemorrhoids at bedside in the ER, with significant resolution of symptoms - Patient was instructed not to strain with BMs - On Miralax and Colace as stool softeners - Anusol for pain relief - Surgery (Ish) consulted, all recs appreciated, recommending elective surgery for hemorrhoidectomy 2. Rhabdomyolysis - BUN 71, creatinine 10, AST 600, [place] [address] on [place], but maintaining good urine output - Creatinine barely improved to 9.3, possibly dilutional rather than actual improvement, CK down to ~5k - Consider possible ATN - Given 2L NS bolus in the ER, on NS@200cc/hr, will decrease to 75cc/hr per nephro - Strict I&O - Renal diet - Nephro (Mughni) consulted, all recs appreciated - Urine eosinophils negative - Pending urine myoglobin, urine total protein, Ca and PTH, urine random creatinine, urine microalbumin - Urine tox screen negative - Transaminitis improving, hepatitis panel negative - Continue to monitor 3. H/o HTN - Restarted home Amlodipine 10mg PO QD, but holding Losartan and HCTZ due to rhabdo - Clonidine 0.1 mg PO Q6 PRN - BP persistently elevated today, will decrease fluids to 75cc/hr then monitor. Consider increasing CCB if no improvement. GI/DVT ppx Dispo: Patient will likely require 1-2 more days of inpatient IVF and monitoring , as well as further workup prior to discharge Patient seen, discussed, and reviewed with attending <Ricci Saba - Last Filed: 06/07/17 13:32> Objective - Vital Signs/Intake and Output Vital Signs (last 24 hours): Temp Pulse Resp BP Pulse Ox 98.2 F 79 20 164/105 H 98 06/07/17 08:00 06/07/17 08:19 06/07/17 08:00 06/07/17 10:14 06/07/17 08:00 Intake and Output: 06/07/17 06/07/17 06:59 18:59 Intake Total 540 Output Total 1400 Balance -860 - Medications Medications: Current Medications Amlodipine Besylate (Norvasc) 10 mg PO DAILY [facility] Last Admin: 06/07/17 10:14 Dose: 10 mg Clonidine HCl (Catapres) 0.1 mg PO Q6 PRN PRN Reason: Systolic Blood Pressure Last Admin: 06/07/17 08:19 Dose: 0.1 mg Docusate Sodium (Colace) 100 mg PO TID [facility] Last Admin: 06/07/17 10:12 Dose: 100 mg Famotidine (Pepcid) 20 mg PO 1000,2200 [facility] Last Admin: 06/07/17 10:12 Dose: 20 mg Heparin Sodium (Porcine) (Heparin) 5,000 units SC Q12 [facility] PRN Reason: Protocol Last Admin: 06/07/17 10:11 Dose: 5,000 units Hydrocortisone (Anusol-Hc) 1 gm MO BID [facility] Last Admin: 06/07/17 11:10 Dose: 1 gm Hydrocortisone (Anusol-Hc) 25 mg RC BID [facility] Last Admin: 06/07/17 10:14 Dose: 25 mg Sodium Chloride (Sodium Chloride 0.9%) 1,000 mls @ 75 mls/hr IV .[id number] [facility] Polyethylene Glycol (Miralax) 17 gm PO DAILY [facility] Last Admin: 06/07/17 10:14 Dose: 17 gm - Labs Labs: 06/07/17 06:13 06/07/17 06:13 PT 11.1 Seconds (9.9-11.8) 06/05/17 14:18 INR 1.03 (0.93-1.08) 06/05/17 14:18 APTT 27.9 Seconds (23.7-30.8) 06/05/17 14:18 Attending/Attestation - Attestation I have personally seen and examined this patient.: Yes I have fully participated in the care of the patient.: Yes I have reviewed all pertinent clinical information, including history, physical exam and plan: Yes Notes (Text): 06/07/17 13:29 51 year old male with past medical history of hypertension who presented with hemorrhoidal pain. He was see by surgery for prolapsed hemorrhoids and had manual reduction. Recommended elective hemorrhoidectomy. He is on colace, miralax and anusol cream. He was also found to have acute renal failure with rhabdomyolysis with elevated LFTs. LFTs and CPK levels are improving after IVF. Renal function however remains about the same. Nephrology is following the patient. IVF was decreased. Bladder/renal US is pending. Patient is on norvasc for hypertension and his losartan/HCTZ is on hold due to RAKEL as above. Elevated BP likely partly due to agressive IVF as above which will be decreased. Ricci Saba MD Hospitalist.
--- NOTE | 2017-06-07 14:42 | US ---
PROCEDURE: Ultrasound urinary bladder HISTORY: checking for post-void residual volume COMPARISON: Not available TECHNIQUE: Transabdominal FINDINGS: The distended urinary bladder measures 372.17 mL. The wall is thin and smooth. There is no intraluminal mass identified. Bilateral ureteral jets are demonstrated. The postvoid residual is 126.83 mL. This is a large residual volume. The prostate measures 96.1 mL volume. IMPRESSION: Large postvoid residual. Enlarged prostate.
--- NOTE | 2017-06-07 14:43 | US ---
PROCEDURE: Ultrasound of the Kidneys HISTORY: acute renal failure COMPARISON: None available. TECHNIQUE: Sonogram of the kidneys. FINDINGS: RIGHT KIDNEY: Measures: 12.0 cm. Normal in size, contour and echogenicity. No stone, solid mass lesion or hydronephrosis visualized. LEFT KIDNEY: Measures: 10.9 cm. Normal in size, contour and echogenicity. No stone, solid mass lesion or hydronephrosis visualized. OTHER FINDINGS: None. IMPRESSION: Unremarkable renal sonogram.
[2017-06-07] MEDS ORDERED: Sodium Chloride 0.45% 1,000 ML IV SCH (18:00)
--- NOTE | 2017-06-07 19:34 | PN ---
NEPHROLOGY FOLLOWUP NOTE SUBJECTIVE: A 51-year-old male with past medical history of hypertension, admitted with rhabdomyolysis and acute renal failure, nephrology following for the same. The patient reports urinating well. No shortness of breath, tolerating diet. PHYSICAL EXAMINATION: VITAL SIGNS: This morning, blood pressure 170/101, heart rate 86, respirations 20, temperature 98.2, O2 sat 98% on room air. GENERAL: No distress. Conversing coherently in full sentences. HEENT: Moist mucous membranes. Nonicteric. RESPIRATORY: Lungs clear to auscultation bilaterally. No rales, no rhonchi, no wheezes. HEART: S1 and S2 normal. No murmurs. No gallops. No rubs. GASTROINTESTINAL: Abdomen is soft. Nontender. Nondistended. GENITOURINARY: No bladder distension appreciated. EXTREMITIES: No leg edema. SKIN: Warm to touch. No cyanosis. PSYCHIATRIC: Normal mood. Normal affect. LABORATORY DATA: Labs this morning: CBC: WBC 5.9, hemoglobin 13.5, hematocrit 39.0, platelets 269. Chemistry panel: Sodium 141, potassium 3.7, chloride 108, bicarb 20, BUN 68, creatinine 9.3, glucose 77, calcium 8.6. CK level 5346, down from 10,761 yesterday. Albumin 3.5. Renal ultrasound done this morning showing left kidney 10.9 cm, right kidney 12 cm, relatively preserved echogenicity. No hydronephrosis; however, bladder ultrasound showing increased postvoid residual volume of 126 mL as well as enlarged prostate ASSESSMENT AND PLAN: 1. Acute renal failure appears to be acute tubular necrosis secondary to rhabdomyolysis, nonoliguric renal failure. Renal function has not significantly improved with serum creatinine, decreasing very mildly and it could simply be attributed to dilution from IV fluids. Question of whether the patient has any chronicity of chronic kidney disease, however, renal ultrasound is relatively reassuring in this regard, still do not have a baseline BMP. We tried contacting PCP's office but have not received a response to obtain old lab results. The patient with mild recent hang up metabolic acidosis in the setting of renal failure, otherwise stable electrolytes, stable volume status, no indication for renal replacement therapy. Continue to monitor renal function and need to watch for post acute tubular necrosis diuresis. For now decrease IV fluids to NS at 75 mL per hour. 2. Urinary retention seen on bladder ultrasound with increased postvoid residual volume with enlarged prostate as well. Recommend to start Flomax 0.4 mg daily. 3. Hypertension, uncontrolled after the patient's home med of losartan and hydrochlorothiazide held in the setting of acute renal failure. Continue to hold these medications. Continue with amlodipine 10 mg daily, and change clonidine from p.r.n. to 0.1 mg q.8 hours standing. 4. Rhabdomyolysis. CK levels continue to trend downward. The patient's corrected calcium is in normal range. Continue gentle IV fluids for now. Tree Degroot MD
[2017-06-08 07:15] LABS: BASO # 0.08 K/mm3 (0.0-2.0); BASO % 1.3 % (0.0-3.0); EOS # 0.2 (0.0-0.7); EOS % 3.1 % (1.5-5.0); GRAN # 3.7 (1.4-6.5); GRAN % 60.9 % (50.0-68.0); HEMATOCRIT 35.5 % (42.0-52.0); LYMPH # 1.6 (1.2-3.4); LYMPH % 25.7 % (22.0-35.0); MEAN CELL VOLUME 75.9 fl (80.0-105.0); MEAN CORPUSCULAR HEMOGLOBIN 25.9 pg (25.0-35.0); MEAN CORPUSCULAR HGB CONC 34.1 g/dl (31.0-37.0); MEAN PLATELET VOLUME 10.4 fl (7.0-11.0); MONO # 0.6 (0.1-0.6); RED CELL DISTRIBUTION WIDTH 13.1 % (11.5-14.5); WHITE BLOOD COUNT 6.1 10^3/ul (4.5-11.0)
[2017-06-08 07:16] LABS: CREATININE, RANDOM URINE 66 mg/dL (20-370)
[2017-06-08 07:25] LABS: BILIRUBIN,TOTAL 0.6 mg/dL (0.2-1.3); CALCIUM 8.5 mg/dL (8.4-10.5); POTASSIUM 3.5 mmol/L (3.6-5.0); TOTAL PROTEIN 6.4 g/dL (5.8-8.3)
--- NOTE | 2017-06-08 08:04 | CP.PCM.PN ---
Subjective - Date & Time of Evaluation Date of Evaluation: 06/08/17 Time of Evaluation: 08:01 - Subjective Subjective: Progress note for Dr. Deng Patient states he's feeling better. TYREE. Patient states he has no complaints. Patient denies F/C, N/V, Arm pain. Objective - Vital Signs/Intake and Output Vital Signs (last 24 hours): Temp Pulse Resp BP Pulse Ox 98.2 F 86 20 168/93 H 95 06/08/17 00:00 06/08/17 00:58 06/08/17 00:00 06/08/17 00:58 06/08/17 00:00 Intake and Output: 06/08/17 06/08/17 06:59 18:59 Intake Total 820 Output Total 1650 Balance -830 - Medications Medications: Current Medications Amlodipine Besylate (Norvasc) 10 mg PO DAILY [facility] Last Admin: 06/07/17 10:14 Dose: 10 mg Clonidine HCl (Catapres) 0.1 mg PO Q6 PRN PRN Reason: Systolic Blood Pressure Last Admin: 06/08/17 00:58 Dose: 0.1 mg Docusate Sodium (Colace) 100 mg PO TID [facility] Last Admin: 06/07/17 19:35 Dose: Not Given Famotidine (Pepcid) 20 mg PO 1000,2200 [facility] Last Admin: 06/07/17 21:40 Dose: 20 mg Heparin Sodium (Porcine) (Heparin) 5,000 units SC Q12 TAMMY PRN Reason: Protocol Last Admin: 06/07/17 21:40 Dose: 5,000 units Hydrocortisone (Anusol-Hc) [address]ID [facility] Last Admin: 06/07/17 19:37 Dose: 1 gm Hydrocortisone (Anusol-Hc) 25 mg RC BID [facility] Last Admin: 06/07/17 19:36 Dose: 25 mg Sodium Chloride (Sodium Chloride 0.45%) 1,000 mls @ 75 mls/hr IV .[id number] [facility] Polyethylene Glycol (Miralax) 17 gm PO DAILY [facility] Last Admin: 06/07/17 10:14 Dose: 17 gm Tamsulosin HCl (Flomax) 0.4 mg PO DAILY [facility] Last Admin: 06/07/17 18:20 Dose: 0.4 mg - Labs Labs: 06/08/17 06:45 06/08/17 07:00 PT 11.1 Seconds (9.9-11.8) 06/05/17 14:18 INR 1.03 (0.93-1.08) 06/05/17 14:18 APTT 27.9 Seconds (23.7-30.8) 06/05/17 14:18 - Constitutional Appears: No Acute Distress - Head Exam Head Exam: NORMAL INSPECTION - Eye Exam Eye Exam: EOMI, Normal appearance - ENT Exam ENT Exam: Mucous Membranes Moist - Neck Exam Neck Exam: Full ROM - Respiratory Exam Respiratory Exam: Clear to Ausculation Bilateral. absent: Accessory Muscle Use , Respiratory Distress - Cardiovascular Exam Cardiovascular Exam: REGULAR RHYTHM - GI/Abdominal Exam GI & Abdominal Exam: Soft. absent: Tenderness - Rectal Exam Rectal Exam: Hemorrhoids Additional comments: resolving - Extremities Exam Extremities Exam: Full ROM, Normal Inspection. absent: Calf Tenderness, Pedal Edema Additional comments: arm swelling decreased - Neurological Exam Neurological Exam: Alert, Awake, Normal Gait - Psychiatric Exam Psychiatric exam: Normal Affect, Normal Mood - Skin Skin Exam: Dry, Normal Color, Warm Assessment and Plan - Assessment and Plan (Free Text) Assessment: 51M presents with rhabdomyolysis and hemorrhoidal prolapse, resolving Plan: Sitz baths monitor BUN/Cr per Medicine team for rhabdomyolysis IVF NS @ 75cc/hr no surgical intervention necessary at this time continue to follow until discharge d/w Dr. Ish Tom, DO PGY1
[2017-06-08] MEDS: POLYETHYLENE GLYCOL 3350 17 GM/Dose PACKET PO SCH (10:21)
[2017-06-08] MEDS: Hydrocortisone 2.5% Rectal Cream(30 gm) PR SCH ×2 (10:22→17:06)
--- NOTE | 2017-06-08 14:48 | CP.PCM.DIS ---
<QUINTIN PIERRE - Last Filed: 06/08/17 16:51> Provider - Provider Date of Admission: 06/05/17 17:11 Attending physician: Ricci Saba MD Primary care physician: Sergio Pierce MD Consults: Nephro: Zane Time Spent in preparation of Discharge (in minutes): 45 Diagnosis - Discharge Diagnosis (1) Acute hemorrhoid Status: Acute Priority: Medium (2) Rhabdomyolysis Status: Acute Priority: High (3) Acute renal failure Status: Acute Priority: High Hospital Course - Lab Results Lab Results: Most Recent Lab Values WBC 6.1 10^3/ul (4.5-11.0) 06/08/17 06:45 RBC 4.68 10^6/uL (3.5-6.1) 06/08/17 06:45 Hgb 12.1 g/dL (14.0-18.0) L 06/08/17 06:45 Hct 35.5 % (42.0-52.0) L 06/08/17 06:45 MCV 75.9 fl (80.0-105.0) L 06/08/17 06:45 MCH 25.9 pg (25.0-35.0) 06/08/17 06:45 MCHC 34.1 g/dl (31.0-37.0) 06/08/17 06:45 RDW 13.1 % (11.5-14.5) 06/08/17 06:45 Plt Count 279 10^3/uL (120.0-450.0) 06/08/17 06:45 MPV 10.4 fl (7.0-11.0) 06/08/17 06:45 Gran % 60.9 % (50.0-68.0) 06/08/17 06:45 Lymph % (Auto) 25.7 % (22.0-35.0) 06/08/17 06:45 [place] % (Auto) 9.0 % (1.0-6.0) H 06/08/17 06:45 Eos % (Auto) 3.1 % (1.5-5.0) 06/08/17 06:45 Baso % (Auto) 1.3 % (0.0-3.0) 06/08/17 06:45 Gran # 3.70 (1.4-6.5) 06/08/17 06:45 Lymph # 1.6 (1.2-3.4) 06/08/17 06:45 [place] # 0.6 (0.1-0.6) 06/08/17 06:45 Eos # 0.2 (0.0-0.7) 06/08/17 06:45 Baso # 0.08 K/mm3 (0.0-2.0) 06/08/17 06:45 PT 11.1 Seconds (9.9-11.8) 06/05/17 14:18 INR 1.03 (0.93-1.08) 06/05/17 14:18 APTT 27.9 Seconds (23.7-30.8) 06/05/17 14:18 Sodium 142 mmol/L (132-148) 06/08/17 07:00 Potassium 3.5 mmol/L (3.6-5.0) L 06/08/17 07:00 Chloride 110 mmol/L (98-107) H 06/08/17 07:00 Carbon Dioxide 20 mmol/L (21-33) L 06/08/17 07:00 Anion Gap 16 (10-20) 06/08/17 07:00 BUN 65 mg/dL (7-21) H 06/08/17 07:00 Creatinine 8.7 mg/dL (0.5-1.4) H* 06/08/17 07:00 Est GFR ( Amer) 8 06/08/17 07:00 Est GFR (Non-Af Amer) 6 06/08/17 07:00 Random Glucose 78 mg/dL (70-110) 06/08/17 07:00 Calcium 8.5 mg/dL (8.4-10.5) 06/08/17 07:00 Total Bilirubin 0.6 mg/dL (0.2-1.3) 06/08/17 07:00 AST 84 U/L (17-59) H D 06/08/17 07:00 ALT 186 U/L (7-56) H 06/08/17 07:00 Alkaline Phosphatase 71 U/L (38-126) 06/08/17 07:00 Total Creatine Kinase 2418 U/L (35-230) H 06/08/17 05:48 CK-MB (CK-2) 5.7 ng/mL (0.0-3.6) H 06/08/17 05:48 CK-MB (CK-2) % 0.2 % (2.5-3.0) L 06/08/17 05:48 Total Protein 6.4 g/dL (5.8-8.3) 06/08/17 07:00 Albumin 3.2 g/dL (3.0-4.8) 06/08/17 07:00 Globulin 3.2 gm/dL 06/08/17 07:00 Albumin/Globulin Ratio 1.0 (1.1-1.8) L 06/08/17 07:00 PTH w/Ion &Tot Calcium 121 pg/mL (14-64) H 06/07/17 06:55 Urine Color Yellow (YELLOW) 06/05/17 17:32 Urine Appearance Sl cloudy (CLEAR) 06/05/17 17:32 Urine pH 6.0 (4.7-8.0) 06/05/17 17:32 Ur Specific [place] 1.010 (1.005-1.035) 06/05/17 17:32 Urine Protein 30 mg/dL (<30 mg/dL) H 06/05/17 17:32 Urine Glucose (UA) Negative mg/dL (NEGATIVE) 06/05/17 17:32 Urine Ketones Negative mg/dL (NEGATIVE) 06/05/17 17:32 Urine Blood Large (NEGATIVE) H 06/05/17 17:32 Urine Nitrate Negative (NEGATIVE) 06/05/17 17:32 Urine Bilirubin Negative (NEGATIVE) 06/05/17 17:32 Urine Urobilinogen 0.2 E.U./dL (<1 E.U./dL) 06/05/17 17:32 Ur Leukocyte Esterase Negative Pili/uL (NEGATIVE) 06/05/17 17:32 Urine RBC 2 - 5 /hpf (0-2) 06/05/17 17:32 Urine WBC 0 - 2 /hpf (0-6) 06/05/17 17:32 Urine Bacteria Few (NEG) 06/05/17 17:32 Urine Eosinophils Negative 06/06/17 08:17 Ur Random Creatinine 60 mg/dL 06/07/17 15:30 U Random Total Protein 160 mg/g creat (22-128) H 06/07/17 15:30 Ur Random Sodium 28 meq/L 06/05/17 17:32 Ur Random Potassium 8.3 meq/L 06/05/17 17:32 Urine Microalbumin 34.6 mg/L (0.0-16.6) H 06/07/17 15:30 Urine Opiates Screen Negative (NEGATIVE) 06/05/17 17:32 Urine Methadone Screen Negative (NEGATIVE) 06/05/17 17:32 Ur Barbiturates Screen Negative (NEGATIVE) 06/05/17 17:32 Ur Phencyclidine Scrn Negative (NEGATIVE) 06/05/17 17:32 Ur Amphetamines Screen Negative (NEGATIVE) 06/05/17 17:32 U Benzodiazepines Scrn Negative (NEGATIVE) 06/05/17 17:32 U Oth Cocaine Metabols Negative (NEGATIVE) 06/05/17 17:32 U Cannabinoids Screen Negative (NEGATIVE) 06/05/17 17:32 Hepatitis A IgM Ab Negative (NEGATIVE) 06/06/17 06:45 Hep Bs Antigen Negative (NEGATIVE) 06/06/17 06:45 Hep B Core IgM Ab Negative (NEGATIVE) 06/06/17 06:45 Hepatitis C Antibody Negative (NEGATIVE) 06/06/17 06:45 - Hospital Course Hospital Course: 51 yo M with PMH of HTN came in for hemorrhoidal pain, noted to have prolapsed hemorrhoids, manually reduced in the ER with some improvement in his pain. Labs drawn in the ER also showed rhabdomyolysis with acute renal failure. Upon inquiry, patient admitted to strenuous weightlifting one week prior to admission , for the first time in over a year. Surgery was consulted for the hemmorrhoids and nephrology was consulted for the acute renal failure and rhabdomyolysis. He received a large amount of IVF with significant improvement in the rhabdomyolysis, but only minimal improvement in the renal failure with creatinine going from 10.0 to 8.7 over the course of 3 days receiving IVF maintenance. Today, patient feels well, with significant improvement in his rectal pain. He denies F/C, N/V/D/C, CP, SOB, abdominal pain, back/flank pain, hematuria, dysuria. He continues to maintain good urine output. Surgery recommended outpatient follow up for elective hemorrhoidectomy, and nephrology recommended outpatient follow up for continued monitoring of renal function, as he continues to improve. All medications were discussed and all questions were answered to his satisfaction, and patient was discharged to home. Patient seen, discussed, and reviewed with attending. Discharge Exam - Head Exam Head Exam: NORMAL INSPECTION - Eye Exam Eye Exam: EOMI, PERRL - ENT Exam ENT Exam: Mucous Membranes Moist - Neck Exam Neck exam: Normal Inspection - Respiratory Exam Respiratory Exam: Clear to PA & Lateral. absent: Rales, Rhonchi - Cardiovascular Exam Cardiovascular Exam: RRR, +S1, +S2 - GI/Abdominal Exam GI & Abdominal Exam: Normal Bowel Sounds, Soft. absent: Distended, Tenderness - Rectal Exam Rectal Exam: Hemorrhoids - Extremities Exam Extremities exam: normal inspection - Back Exam Back exam: absent: CVA tenderness (L), CVA tenderness (R) - Neurological Exam Neurological exam: Alert, Oriented x3 - Psychiatric Exam Psychiatric exam: Normal Affect, Normal Mood - Skin Skin Exam: Dry, Intact Discharge Plan - Discharge Medications Prescriptions: Carvedilol [Coreg] 3.125 mg PO BID #60 tab Carvedilol [Coreg] 6.25 mg PO BID #30 tab Polyethylene Glycol 3350 [Miralax] 17 gm PO DAILY #30 packet Tamsulosin [Flomax] 0.4 mg PO DAILY #30 cap - Follow Up Plan Condition: STABLE Disposition: HOME/ ROUTINE Instructions: Acute Kidney Injury (DC) Additional Instructions: 1. Discontinue Losartan/HCTZ, and instead start the Coreg (carvedilol) 2. Start Flomax to prevent urinary retention 3. Continue to take all other medications as prescribed 4. Maintain aggressive hydration, at least 64oz daily 5. Obtain lab work this Tuesday, written prescription given 6. Follow up with Dr. Degroot within 1 week 7. Follow up with Dr. Guerra, or urologist of choice, within 2 weeks 8. Follow up with Dr. Deng for outpatient hemorrhoidectomy 9. Follow up with PCP within 1 week For any new or worsening concerns, contact PCP immediately, or return to ER Referrals: Tree Degroot MD [Staff Provider] - Sergio Pierce MD [Primary Care Provider] - Kwabena Guerra MD [Staff Provider] - Ammy Deng MD [Staff Provider] - <Ricci Saba - Last Filed: 06/08/17 17:53> Provider - Provider Date of Admission: 06/05/17 17:11 Attending physician: Ricci Saba MD Primary care physician: Sergio Pierce MD Hospital Course - Lab Results Lab Results: Most Recent Lab Values WBC 6.1 10^3/ul (4.5-11.0) 06/08/17 06:45 RBC 4.68 10^6/uL (3.5-6.1) 06/08/17 06:45 Hgb 12.1 g/dL (14.0-18.0) L 06/08/17 06:45 Hct 35.5 % (42.0-52.0) L 06/08/17 06:45 MCV 75.9 fl (80.0-105.0) L 06/08/17 06:45 MCH 25.9 pg (25.0-35.0) 06/08/17 06:45 MCHC 34.1 g/dl (31.0-37.0) 06/08/17 06:45 RDW 13.1 % (11.5-14.5) 06/08/17 06:45 Plt Count 279 10^3/uL (120.0-450.0) 06/08/17 06:45 MPV 10.4 fl (7.0-11.0) 06/08/17 06:45 Gran % 60.9 % (50.0-68.0) 06/08/17 06:45 Lymph % (Auto) 25.7 % (22.0-35.0) 06/08/17 06:45 [place] % (Auto) 9.0 % (1.0-6.0) H 06/08/17 06:45 Eos % (Auto) 3.1 % (1.5-5.0) 06/08/17 06:45 Baso % (Auto) 1.3 % (0.0-3.0) 06/08/17 06:45 Gran # 3.70 (1.4-6.5) 06/08/17 06:45 Lymph # 1.6 (1.2-3.4) 06/08/17 06:45 [place] # 0.6 (0.1-0.6) 06/08/17 06:45 Eos # 0.2 (0.0-0.7) 06/08/17 06:45 Baso # 0.08 K/mm3 (0.0-2.0) 06/08/17 06:45 PT 11.1 Seconds (9.9-11.8) 06/05/17 14:18 INR 1.03 (0.93-1.08) 06/05/17 14:18 APTT 27.9 Seconds (23.7-30.8) 06/05/17 14:18 Sodium 142 mmol/L (132-148) 06/08/17 07:00 Potassium 3.5 mmol/L (3.6-5.0) L 06/08/17 07:00 Chloride 110 mmol/L (98-107) H 06/08/17 07:00 Carbon Dioxide 20 mmol/L (21-33) L 06/08/17 07:00 Anion Gap 16 (10-20) 06/08/17 07:00 BUN 65 mg/dL (7-21) H 06/08/17 07:00 Creatinine 8.7 mg/dL (0.5-1.4) H* 06/08/17 07:00 Est GFR ( Amer) 8 06/08/17 07:00 Est GFR (Non-Af Amer) 6 06/08/17 07:00 Random Glucose 78 mg/dL (70-110) 06/08/17 07:00 Calcium 8.5 mg/dL (8.4-10.5) 06/08/17 07:00 Total Bilirubin 0.6 mg/dL (0.2-1.3) 06/08/17 07:00 AST 84 U/L (17-59) H D 06/08/17 07:00 ALT 186 U/L (7-56) H 06/08/17 07:00 Alkaline Phosphatase 71 U/L (38-126) 06/08/17 07:00 Total Creatine Kinase 2418 U/L (35-230) H 06/08/17 05:48 CK-MB (CK-2) 5.7 ng/mL (0.0-3.6) H 06/08/17 05:48 CK-MB (CK-2) % 0.2 % (2.5-3.0) L 06/08/17 05:48 Total Protein 6.4 g/dL (5.8-8.3) 06/08/17 07:00 Albumin 3.2 g/dL (3.0-4.8) 06/08/17 07:00 Globulin 3.2 gm/dL 06/08/17 07:00 Albumin/Globulin Ratio 1.0 (1.1-1.8) L 06/08/17 07:00 PTH w/Ion &Tot Calcium 121 pg/mL (14-64) H 06/07/17 06:55 Urine Color Yellow (YELLOW) 06/05/17 17:32 Urine Appearance Sl cloudy (CLEAR) 06/05/17 17:32 Urine pH 6.0 (4.7-8.0) 06/05/17 17:32 Ur Specific [place] 1.010 (1.005-1.035) 06/05/17 17:32 Urine Protein 30 mg/dL (<30 mg/dL) H 06/05/17 17:32 Urine Glucose (UA) Negative mg/dL (NEGATIVE) 06/05/17 17:32 Urine Ketones Negative mg/dL (NEGATIVE) 06/05/17 17:32 Urine Blood Large (NEGATIVE) H 06/05/17 17:32 Urine Nitrate Negative (NEGATIVE) 06/05/17 17:32 Urine Bilirubin Negative (NEGATIVE) 06/05/17 17:32 Urine Urobilinogen 0.2 E.U./dL (<1 E.U./dL) 06/05/17 17:32 Ur Leukocyte Esterase Negative Pili/uL (NEGATIVE) 06/05/17 17:32 Urine RBC 2 - 5 /hpf (0-2) 06/05/17 17:32 Urine WBC 0 - 2 /hpf (0-6) 06/05/17 17:32 Urine Bacteria Few (NEG) 06/05/17 17:32 Urine Eosinophils Negative 06/06/17 08:17 Ur Random Creatinine 60 mg/dL 06/07/17 15:30 U Random Total Protein 160 mg/g creat (22-128) H 06/07/17 15:30 Ur Random Sodium 28 meq/L 06/05/17 17:32 Ur Random Potassium 8.3 meq/L 06/05/17 17:32 Urine Microalbumin 34.6 mg/L (0.0-16.6) H 06/07/17 15:30 Urine Opiates Screen Negative (NEGATIVE) 06/05/17 17:32 Urine Methadone Screen Negative (NEGATIVE) 06/05/17 17:32 Ur Barbiturates Screen Negative (NEGATIVE) 06/05/17 17:32 Ur Phencyclidine Scrn Negative (NEGATIVE) 06/05/17 17:32 Ur Amphetamines Screen Negative (NEGATIVE) 06/05/17 17:32 U Benzodiazepines Scrn Negative (NEGATIVE) 06/05/17 17:32 U Oth Cocaine Metabols Negative (NEGATIVE) 06/05/17 17:32 U Cannabinoids Screen Negative (NEGATIVE) 06/05/17 17:32 Hepatitis A IgM Ab Negative (NEGATIVE) 06/06/17 06:45 Hep Bs Antigen Negative (NEGATIVE) 06/06/17 06:45 Hep B Core IgM Ab Negative (NEGATIVE) 06/06/17 06:45 Hepatitis C Antibody Negative (NEGATIVE) 06/06/17 06:45 Attending/Attestation - Attestation I have personally seen and examined this patient.: Yes I have fully participated in the care of the patient.: Yes I have reviewed all pertinent clinical information, including history, physical exam and plan: Yes Notes (Text): 06/08/17 17:49 51 year old male with past medical history of hypertension who presented with hemorrhoidal pain. He was seen by surgery for prolapsed hemorrhoids and had manual reduction. He is on colace, miralax and anusol cream. He was recommended to follow up with surgery for elective hemorrhoidectomy. He was also found to have acute renal failure with rhabdomyolysis with elevated LFTs. This improved with IVF. Renal function was still elevated and improved very little. He was being followed by nephrology who recommended close outpatient follow up. Renal US was negative and bladder US showed enlarged prostate. He was started on flomax and recommended to follow up with urologist. Patient is on norvasc for hypertension and his losartan/HCTZ is on hold due to RAKEL as above. He was also started on coreg. Patient will be discharged home to follow up with pmd. Follow up with surgery, nephrology and urology as above. Monitor BP and creatinine closely as outpatient with pmd and nephrology. Ricci Saba MD Hospitalist.
[2017-06-08 20:55] VITALS: BP 161/99; PULSE 83; RESP 18; TEMP 98.7; O2SAT 95
--- NOTE | 2017-06-08 23:01 | PN ---
NEPHROLOGY FOLLOWUP NOTE SUBJECTIVE: A 51 -year-old male with past medical history of hypertension, admitted with rhabdomyolysis and acute renal failure, nephrology following for the same. The patient reports urinating well. Denies having increased urine output today. Tolerating diet. Has been ambulating well. PHYSICAL EXAMINATION VITAL SIGNS: This morning; blood pressure 157/88, heart rate 85, respirations 20, temperature 98.6 and O2 saturation 98% on room air. GENERAL: No distress. Communicating coherently in full sentences. HEENT: Moist mucous membranes. Nonicteric. RESPIRATORY: Mild right basal rales, otherwise clear to auscultation bilaterally. No rhonchi. No wheezes. HEART: S1 and S2 normal. No murmurs, no gallops, no rubs. Regular rate and rhythm. GASTROINTESTINAL: Abdomen soft, nontender, nondistended. EXTREMITIES: Minimal lower leg edema. SKIN: Warm. No cyanosis. PSYCHIATRIC: Normal affect. LABORATORY DATA: This morning, CBC: WBC 6.1, hemoglobin 12.1, hematocrit 35.5, platelets 279. Chemistry panel: Sodium 142, potassium 3.5, chloride 110, bicarbonate 20, BUN 65, creatinine 8.7, glucose 78, calcium 8.5, albumin 3.2. CK level 2418, down from 5346 yesterday. ASSESSMENT AND PLAN: 1. Acute renal failure likely secondary to acute tubular necrosis due to rhabdomyolysis, nonoliguric renal failure. Renal function now improving with decreasing serum creatinine. Records indicate patient put out 3.6 liters urine output yesterday; however, patient reporting decreased urine output today. No sign that patient is getting volume depleted. The patient is safe for discharge on condition that he get a BMP that is basic metabolic panel on Tuesday i.e in 2 days and follow up in nephrology clinic early next week which patient agrees to do. The patient advised to keep himself well hydrated and increase his salt intake until we see him next week. 2. Urinary retention. The patient started on a Flomax 0.4 mg daily. Condition is the same. 3. Hypertension. Uncontrolled after holding home medications of losartan and hydrochlorothiazide in the setting of acute renal failure. Continue to hold his medications. Continuing with amlodipine 10 mg daily. Switching clonidine to Coreg 6.25 mg b.i.d. 4. Rhabdomyolysis. CK levels continue to trend downward. The patient has been advised to avoid abruptly over exerting himself with intense workouts. Tree Degroot MD
[2017-06-08 23:04] LABS: CALCIUM 8.7 mg/dL (8.6-10.3)
== END 2017-06-08 22:33 | disposition home or self-care (01) | DRG 560 ==
LOC: ED 12:35 → ERH 17:11 → 5RSO 21:32
PROVIDERS: ADMIT Internal Medicine; ATTEND Internal Medicine
DX: M62.82 Rhabdomyolysis (principal); N17.0 Acute kidney failure with tubular necrosis; N18.9 Chronic kidney disease, unspecified; K64.8 Other hemorrhoids; I12.9 Hypertensive chronic kidney disease with stage 1 through stage 4 chronic kidney disease, or unspecified chronic kidney disease; N40.1 Benign prostatic hyperplasia with lower urinary tract symptoms; R33.8 Other retention of urine; E83.51 Hypocalcemia; K64.4 Residual hemorrhoidal skin tags; Z79.899 Other long term (current) drug therapy; Z82.49 Family history of ischemic heart disease and other diseases of the circulatory system; R40.2412 Glasgow coma scale score 13-15, at arrival to emergency department; R74.0 Nonspecific elevation of levels of transaminase and lactic acid dehydrogenase [LDH]